=== PATIENT | female | born 1940 | race Caucasian/White ===

== ENCOUNTER 2017-02-06 12:50 | Day surgery (SDC) | payer MEDICARE, OTHER ==
--- NOTE | 2017-02-06 13:28 | PCM.PREANE ---
[id number] Transfusion History: Prior Transfusion Without Reaction - Physical Assessment Height: 1.6 m Weight: 68.765 kg - Allergies Allergies/Adverse Reactions: Allergies Allergy/AdvReac Type Severity Reaction Status Date / Time No Known Allergies Allergy Verified 02/17/14 12:03 PreAnesthesia Questionnaire HEENT History: Reports: Impaired vision, Other (see below) Other HEENT History: has contacts Cardiovascular History: Reports: Afib, Heart Failure, Hypertension Respiratory History: Reports: SOB Gastrointestinal History: Reports: Chronic constipation, GERD, Hiatal hernia Genitourinary History: Reports: Urinary incontinence 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: Musculoskeletal History: Reports: Back pain, chronic, Other (see below) Other Musculoskeletal History: knee pain, shoulder pain Psychiatric History: Reports: Anxiety, Depression Endocrine/Metabolic History: Reports: Hypothyroidism Hematologic History: Reports: Anemia, Blood transfusion(s), Other (see below) Other Hematologic History: thalessemia Oncologic (Cancer) History: Reports: Other (see below) Other Oncologic History: Melanoma - Past Surgical History HEENT Surgical History: Reports: Adenoidectomy, Tonsillectomy Cardiovascular Surgical History: Reports: Other (see below) Other Cardiovascular Surgeries/Procedures: cardiac shock treatment for A-Fib GI Surgical History: Reports: Colonoscopy, EGD, Other (see below) Other GI Surgeries/Procedures: double femoral hernia surgery Female Surgical History: Reports: Hysterectomy Endocrine Surgical History: Reports: None Musculoskeletal Surgical History: Reports: None Oncologic Surgical History: Reports: Other (see below) Other Oncologic Surgeries/Procedures: removal of melanoma - SUBSTANCE USE Smoking Status *Q: Former Smoker Tobacco Use Within Last Twelve Months: Cigarettes Second Hand Smoke Exposure: No Days Per Week of Alcohol Use: 0 Recreational Drug Use History: No - HOME MEDS Home Medications: Home Meds Candesartan [Atacand] 8 mg PO DAILY 02/17/14 [History] Cholecalciferol (Vitamin D3) [Vitamin D3] 1,000 units PO DAILY 02/17/14 [History ] Furosemide [Lasix] 40 mg PO DAILY 02/17/14 [History] Levothyroxine Sodium [Synthroid] 125 mcg PO DAILY 02/17/14 [History] Carvedilol [Coreg] 12.5 mg PO BID #60 tab 02/23/14 [Rx] Digoxin [Digox] 125 mcg PO DAILY 09/28/16 [History] Diltiazem [Cardizem CD] 240 mg PO DAILY 09/28/16 [History] LORazepam 0.5 mg PO TID PRN 09/28/16 [History] Menthol [Biofreeze] 1 applic TOP ASDIRECTED PRN 09/28/16 [History] buPROPion [Wellbutrin] 300 mg PO DAILY 09/28/16 [History] rOPINIRole [Requip] 0.5 mg PO BEDTIME 09/28/16 [History] Armodafinil [Nuvigil] 150 mg PO DAILY 02/06/17 [History] Folic Acid 1 mg PO DAILY 02/06/17 [History] Lactobac Cmb #3/Fos/Pantethine [Probiotic & Acidophilus] 1 cap PO DAILY [History] Pantoprazole Sodium [Protonix] 40 mg PO DAILY #90 cap 02/06/17 [Rx]
--- NOTE | 2017-02-06 13:37 | PCM.PREANE ---
Preanesthetic Assessment - Anesthesia/Transfusion/Family Hx Anesthesia History: Prior Anesthesia Reaction (excessive drowsiness) Type of Anesthesia Reaction: Excessive Somnolence Transfusion History: Prior Transfusion Without Reaction Intubation History: Unknown - Review of Systems General: No Symptoms Pulmonary: Shortness of Breath (gets short of breath with anemia ) Cardiovascular: No Symptoms Gastrointestinal: Nausea Neurological: No Symptoms Other: Reports: Easy Bleeding, Easy Bruising, Thyroid Problems - Physical Assessment NPO Status Date: 02/06/17 NPO Status Time: 06:00 Height: 1.6 m Weight: 68.765 kg ASA Class: 3 Mental Status: Alert & Oriented x3 Airway Class: Mallampati = 2 Dentition: Reports: [place](s) (4 permanent front ) Thyro-Mental Finger Breadths: 3 Mouth Opening Finger Breadths: 5 ROM/Head Extension: Full Lungs: Clear to auscultation, Normal respiratory effort Cardiovascular: Regular Rate, Regular Rhythm - Allergies Allergies/Adverse Reactions: Allergies Allergy/AdvReac Type Severity Reaction Status Date / Time No Known Allergies Allergy Verified 02/17/14 12:03 - Blood Blood Available: No - Anesthesia Plan Pre-Op Medication Ordered: Anxiolytic - Acknowledgements Anesthesia Type Planned: MAC (clarified with patient that propofol is not a true allergy ) Pt an Appropriate Candidate for the Planned Anesthesia: Yes Alternatives and Risks of Anesthesia Discussed w Pt/Guardian: Yes Pt/Guardian Understands and Agrees with Anesthesia Plan: Yes PreAnesthesia Questionnaire HEENT History: Reports: Impaired vision, Other (see below) Other HEENT History: has contacts Cardiovascular History: Reports: Afib, Heart Failure, Hypertension Respiratory History: Reports: SOB Gastrointestinal History: Reports: Chronic constipation, GERD, Hiatal hernia Genitourinary History: Reports: Urinary incontinence 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: Musculoskeletal History: Reports: Back pain, chronic, Other (see below) Other Musculoskeletal History: knee pain, shoulder pain Psychiatric History: Reports: Anxiety, Depression Endocrine/Metabolic History: Reports: Hypothyroidism Hematologic History: Reports: Anemia, Blood transfusion(s), Other (see below) Other Hematologic History: thalessemia Oncologic (Cancer) History: Reports: Other (see below) Other Oncologic History: Melanoma - Past Surgical History HEENT Surgical History: Reports: Adenoidectomy, Tonsillectomy Cardiovascular Surgical History: Reports: Other (see below) Other Cardiovascular Surgeries/Procedures: cardiac shock treatment for A-Fib GI Surgical History: Reports: Colonoscopy, EGD, Other (see below) Other GI Surgeries/Procedures: double femoral hernia surgery Female Surgical History: Reports: Hysterectomy Endocrine Surgical History: Reports: None Musculoskeletal Surgical History: Reports: None Oncologic Surgical History: Reports: Other (see below) Other Oncologic Surgeries/Procedures: removal of melanoma - SUBSTANCE USE Smoking Status *Q: Former Smoker Tobacco Use Within Last Twelve Months: Cigarettes Second Hand Smoke Exposure: No Days Per Week of Alcohol Use: 0 Recreational Drug Use History: No - HOME MEDS Home Medications: Home Meds Candesartan [Atacand] 8 mg PO DAILY 02/17/14 [History] Cholecalciferol (Vitamin D3) [Vitamin D3] 1,000 units PO DAILY 02/17/14 [History ] Furosemide [Lasix] 40 mg PO DAILY 02/17/14 [History] Levothyroxine Sodium [Synthroid] 125 mcg PO DAILY 02/17/14 [History] Rivaroxaban [Xarelto] 15 mg PO DAILY 02/17/14 [History] Carvedilol [Coreg] 12.5 mg PO BID #60 tab 02/23/14 [Rx] Digoxin [Digox] 125 mcg PO DAILY 09/28/16 [History] Diltiazem [Cardizem CD] 240 mg PO DAILY 09/28/16 [History] LORazepam 0.5 mg PO TID PRN 09/28/16 [History] Menthol [Biofreeze] 1 applic TOP ASDIRECTED PRN 09/28/16 [History] buPROPion [Wellbutrin] 300 mg PO DAILY 09/28/16 [History] rOPINIRole [Requip] 0.5 mg PO BEDTIME 09/28/16 [History] Armodafinil [Nuvigil] 150 mg PO DAILY 02/06/17 [History] Folic Acid 1 mg PO DAILY 02/06/17 [History] Lactobac Cmb #3/Fos/Pantethine [Probiotic & Acidophilus] 1 cap PO DAILY [History]
[2017-02-06] MEDS ORDERED: Lidocaine 1% 50 ML MDV ONE (13:51)
[2017-02-06] MEDS ORDERED: Heparin Sodium 5,000 Units/ML Vial ONE (13:51)
[2017-02-06] MEDS ORDERED: Sodium Chloride 0.9% 10 ML Syringe FLUSH PRN (14:07)
[2017-02-06] MEDS ORDERED: Lidocaine 1%/Sod Bicarbonate in NS 8.4% 1 ML Syringe IV PRN (14:07)
[2017-02-06] MEDS ORDERED: Lactated Ringers 1,000 ML IV SCH (14:15)
[2017-02-06] MEDS ORDERED: Midazolam 1 MG/ML 2 ML SDV ONE (14:17)
[2017-02-06] MEDS ORDERED: Propofol 200 MG/20 ML SDV ONE ×2 (14:17→15:41)
[2017-02-06] MEDS ORDERED: Ketamine 500 mg/10 ML MDV ONE (14:18)
[2017-02-06] MEDS ORDERED: Lidocaine 1% 4 ML ONE (14:19)
[2017-02-06] MEDS ORDERED: Phenylephrine 1% 10 MG/ML SDV ONE (15:43)
--- NOTE | 2017-02-06 16:05 | PCM.OPNOTE ---
- General Post-Op/Procedure Note Date of Surgery/Procedure: 02/06/17 Operative Procedure(s): Bone marrow biopsy and aspiration, diagnostic EGD with cold forceps biopsy, attempted colonoscopy and flexible sigmoidoscopy Pre Op Diagnosis: Anemia of uncertain etiology, family history of colon cancer, heartburn and reflux, hematochezia x1 Post-Op Diagnosis: Gastritis, gastric ulcers, hiatal hernia, Neftali's ulcer, diverticulosis Anesthesia Technique: MAC Primary Surgeon: Lalita Chahal Anesthesia Provider: Mj August Risk Control Director: Marla Arboleda Pathology: 1. Small bowel biopsy 2. Antral biopsy 3. Distal esophageal biopsy 4. Bone marrow core biopsy 5. Bone marrow aspirate Fluid Replacement, Intraop: 900 (mL crystalloid ) EBL in mLs: 15 Complications: None Condition: Good Free Text/Narrative:: Indication for Procedure: The patient is a 76-year-old woman who was referred to me by Dr. Ely Vivar for bone marrow biopsy for further work-up of possible MDS or possibly leukemia. She also has a history of thalassemia and intermittent severe anemia. An EGD and colonoscopy for work-up of her anemia was also requested. Last EGD and colonoscopy were in with Drs. Eaton and Eze. I discussed with the patient bone marrow biopsy as well as EGD and colonoscopy and associated risks of the procedures. The patient found these risks acceptable and agreed to proceed. She last took her Xarelto on 02/04/17 at 0300. Description of Procedure: The patient was taken to the operating room and placed in the left lateral decubitus position. After induction of adequate sedation, the right posterior iliac crest was identified anatomically and the area was prepped with chlorhexidine. 10 mL of local anesthetic was injected into the target insertion site into the posterior iliac crest and associated periosteum. A small stab incision was made using a scalpel after a sterile drape was applied. A P2i [employer] bone marrow biopsy kit was utilized. The bone marrow core biopsy needle was introduced into the posterior iliac crest and the inner cannula removed. 10 mL of bone marrow was rapidly aspirated without difficulty into a heparinated syringe and immediately passed off to Pathology for slide preparation. The bone marrow biopsy needle was removed and pressure was held. The inner cannula was replaced and the biopsy trocar was once again introduced through the incision site and placed in a slightly different position on the posterior iliac crest for obtaining a core bone marrow sample. A core sample was obtained and immediately passed off to Pathology for preparation of slides. Special instructions were sent in writing and verbally conveyed to pathology regarding the additional studies requested by Dr. Vivar to be performed on the specimen. Pressure was held at the incision site for a total of 15 minutes. Gauze and a band-aid was applied. An additional peripheral blood specimen during was drawn during today's visit for pathology for performance of the peripheral smear. Attention was then turned to the endoscopy, and a bite block was placed. A standard Olympus gastroscope was inserted into the oropharynx and guided down the esophagus without difficulty. The gastroesophageal junction was appreciated at 34 cm from the teeth. There was no evidence of stricture or esophageal ulcerations. The scope was advanced into the stomach, and there was gastritis with small gastric ulcers of the antrum that were not actively bleeding. The scope was passed into the proximal jejunum and the duodenum which were unremarkable. There were no petechiae or ulcerations. The proximal jejunum was grossly normal in appearance. Multiple cold forceps biopsies were obtained of the proximal jejunum and duodenum. The scope was withdrawn into the antrum, and additional cold forceps biopsies were obtained. The remainder of the gastric body was examined, and there was a non-bleeding Neftali's ulcer associated with a medium sized hiatal hernia, about 5 cm in length. The scope was retroflexed. The scope was straightened and withdrawn to the GE junction. Additional cold forceps biopsies were obtained of the distal esophagus. The scope was withdrawn through the remainder of the esophagus and no further abnormalities were noted. The posterior oropharynx was grossly normal in appearance. The scope was fully withdrawn and attention was then turned to the colonoscopy. A digital rectal exam was performed which was unremarkable. A pediatric Olympus colonoscope was inserted into the rectum and was advanced to about 80 cm , but was not able to be advanced further due to looping of the scope. Counter pressure was utilized as well as positional change to supine with no avail. The patient had a complete colonoscopy in [address] Eaton, performed due to severe anemia, which was unremarkable. The scope was then slowly withdrawn through the colon from 80 cm and distally. The quality of the prep was good. There was no evidence of angiodysplasias. Diverticulosis was noted in the sigmoid colon. No mass lesions were noted. The scope was withdrawn into the rectum and retroflexed. There was no significant prominence of the patient's internal hemorrhoids. The scope was straightened, the colon was desufflated, and the scope was withdrawn. The patient was awakened from sedation and transferred to the recovery room in stable condition having tolerated the procedure well. Postoperative Plan: The patient will be contacted by Dr. Vivar's office regarding their bone marrow biopsy results. The patient will follow up in approximately 7-10 days to discuss pathology and endoscopy findings. With the patient's history of thalassemia and now concern for possible bone marrow related disorder, her anemia presentation is certainly complicated. She also has gastric ulcers and with the presence of a hiatal hernia and a Neftali's ulcer, iron deficiency anemia certainly may be associated with this. The patient is to start Protonix 40mg daily. I have asked the patient to follow a GERD\gastritis diet. The patient is to call with any worsening of symptoms or questions prior to the appointment. The patient is to call my office with any questions or concerns regarding the bone marrow biopsy site or concerns regarding the procedure.
--- NOTE | 2017-02-06 16:07 | PCM48HPAN ---
Post Anesthesia Note - EVALUATION WITHIN 48HRS OF ANESTHETIC Vital Signs in Normal Range: Yes Patient Participated in Evaluation: Yes Respiratory Function Stable: Yes Airway Patent: Yes Cardiovascular Function Stable: Yes Hydration Status Stable: Yes Pain Control Satisfactory: Yes Nausea and Vomiting Control Satisfactory: Yes Mental Status Recovered: Yes
[2017-02-06 16:55] VITALS: BP 121/62
== END 2017-02-06 16:50 | disposition home or self-care (01) ==
LOC: JD.SDS 12:50
PROVIDERS: ATTEND Surgery
DX: K57.30 Diverticulosis of large intestine without perforation or abscess without bleeding (principal); D64.9 Anemia, unspecified; K62.5 Hemorrhage of anus and rectum; Z80.0 Family history of malignant neoplasm of digestive organs; I48.91 Unspecified atrial fibrillation; Z79.01 Long term (current) use of anticoagulants; K59.00 Constipation, unspecified; K21.9 Gastro-esophageal reflux disease without esophagitis; F10.239 Alcohol dependence with withdrawal, unspecified; F10.10 Alcohol abuse, uncomplicated; Z87.891 Personal history of nicotine dependence; E03.9 Hypothyroidism, unspecified; F41.9 Anxiety disorder, unspecified; F32.9 Major depressive disorder, single episode, unspecified; E87.6 Hypokalemia; Z90.710 Acquired absence of both cervix and uterus; Z98.890 Other specified postprocedural states; Z79.899 Other long term (current) drug therapy; Z88.8 Allergy status to other drugs, medicaments and biological substances
CPT/HCPCS: 36415; 38220; 38221; 43239; 45378; 85025; 85097; 88305; 88311; 88313; J1644; J2250; J2370; J7120; 01112; 88271; 88274; 88275; J2704

== ENCOUNTER 2017-03-18 13:41 | Emergency (ER) | payer MEDICARE, OTHER ==
[2017-03-18] MEDS ORDERED: Sodium Chloride 0.9% 10 ML Syringe FLUSH PRN (14:18)
--- NOTE | 2017-03-18 14:23 | EDM.PDOC ---
ED HPI GENERAL MEDICAL PROBLEM - General Chief Complaint: General Stated Complaint: WEAKNESS,DIZZINESS Time Seen by Provider: 03/18/17 14:03 Source of Information: Reports: Patient History Limitations: Reports: No Limitations - History of Present Illness INITIAL COMMENTS - FREE TEXT/NARRATIVE: 76-year-old female presents for evaluation and treatment of weakness, shortness of breath, dizziness and decreased appetite. Patient reports that the symptoms have been going on since Saturday. Patient has chronic anemia and states this is how she feels when her hemoglobin is low. She currently receives one unit of blood every other week. Her last unit of blood was last Saturday. Reports that her hemoglobin was 8.2 pretransfusion. Her current symptoms include weakness, and a burning sensation to the bilateral knees, shortness of breath, dizziness and decreased appetite. She denies any chest pain, syncope, fevers, abdominal pain, diarrhea, melena or hematochezia. Patient's is present and states that he checks daily and her blood pressure was running 93-105 systolic. Patient reports she is having some postnasal drip and increased phlegm. Chest reports a chronic cough, no change. Reviewed the patient's records show that she had an EGD and colonoscopy on February 05, 2017. She also had a bone marrow biopsy. Diagnosis he is from the EGD and colonoscopy include gastritis, gastric ulcer, hiatal hernia, Neftali's ulcer and diverticulosis. Patient reports she has "bone marrow cancer". - Related Data Allergies Allergy/AdvReac Type Severity Reaction Status Date / Time propofol Allergy Drowsiness Verified 03/18/17 13:53 Home Meds: Home Meds Candesartan [Atacand] 8 mg PO DAILY 02/17/14 [History] Cholecalciferol (Vitamin D3) [Vitamin D3] 1,000 units PO DAILY 02/17/14 [History ] Furosemide [Lasix] 40 mg PO DAILY 02/17/14 [History] Levothyroxine Sodium [Synthroid] 125 mcg PO DAILY 02/17/14 [History] Carvedilol [Coreg] 12.5 mg PO BID #60 tab 02/23/14 [Rx] Digoxin [Digox] 125 mcg PO DAILY 09/28/16 [History] Diltiazem [Cardizem CD] 240 mg PO DAILY 09/28/16 [History] LORazepam 0.5 mg PO TID PRN 09/28/16 [History] Menthol [Biofreeze] 1 applic TOP ASDIRECTED PRN 09/28/16 [History] buPROPion [Wellbutrin] 300 mg PO DAILY 09/28/16 [History] rOPINIRole [Requip] 1 mg PO BEDTIME 09/28/16 [History] Armodafinil [Nuvigil] 150 mg PO DAILY 02/06/17 [History] Folic Acid 1 mg PO DAILY 02/06/17 [History] Lactobac Cmb #3/Fos/Pantethine [Probiotic & Acidophilus] 1 cap PO DAILY [History] Pantoprazole Sodium [Protonix] 40 mg PO DAILY #90 cap 02/06/17 [Rx] Guaifenesin/Pseudoephedrne HCl [Mucinex D ER Tablet] 1 each PO BID PRN 02/27/17 [History] Rivaroxaban [Xarelto] 15 mg PO DAILY 02/27/17 [History] Past Medical History HEENT History: Reports: Impaired Vision, Other (See Below) Other HEENT History: has contacts Cardiovascular History: Reports: Afib, Heart Failure, Hypertension Respiratory History: Reports: SOB Gastrointestinal History: Reports: Chronic Constipation, GERD, Hiatal Hernia Genitourinary History: Reports: Urinary Incontinence [employer] History: Reports: Musculoskeletal History: Reports: Back Pain, Chronic, Other (See Below) Other Musculoskeletal History: knee pain, shoulder pain Psychiatric History: Reports: Anxiety, Depression Endocrine/Metabolic History: Reports: Hypothyroidism Hematologic History: Reports: Anemia, Blood Transfusion(s) Other Hematologic History: thalessemia Oncologic (Cancer) History: Reports: Other (See Below) Other Oncologic History: PATIENT STATES SHE HAS A BONE MARROW CANCER - Past Surgical History Cardiovascular Surgical History: Reports: Other (See Below) GI Surgical History: Reports: Colonoscopy, EGD, Other (See Below) Endocrine Surgical History: Reports: None Dermatological Surgical History: Reports: Skin Biopsy Social & Family History - Family History Family Medical History: Noncontributory - Tobacco Use Smoking Status *Q: Former Smoker Years of Tobacco use: 30 Used Tobacco, but Quit: Yes Month Tobacco Last Used: 1 Second Hand Smoke Exposure: No - Caffeine Use Caffeine Use: Reports: None - Alcohol Use Days Per Week of Alcohol Use: 0 - Recreational Drug Use Recreational Drug Use: No ED ROS GENERAL - Review of Systems Review Of Systems: See Below Constitutional: Reports: Weakness, Decreased Appetite. Denies: Fever HEENT: Reports: Other (very minimal bleeding from the gums; reports a drop after brushing her teeth). Denies: Nosebleed Respiratory: Reports: Shortness of Breath, Cough (chronic) Cardiovascular: Denies: Chest Pain GI/Abdominal: Denies: Abdominal Pain, Diarrhea, Hematochezia, Melena, Nausea, Vomiting Musculoskeletal: Reports: Joint Pain (bilateral knee pain/burning) Neurological: Denies: Headache, Syncope ED EXAM, GENERAL - Physical Exam Exam: See Below Exam Limited By: No Limitations General Appearance: Alert, WD/WN, No Apparent Distress Ears: Normal External Exam Nose: Normal Inspection Throat/Mouth: Normal Inspection, Normal Lips, Normal Voice, No Airway Compromise Respiratory/Chest: No Respiratory Distress, Lungs Clear, Normal Breath Sounds Cardiovascular: Normal Peripheral Pulses, Regular Rate, Rhythm, No Murmur GI/Abdominal: Soft, Non-Tender Neurological: Alert, Oriented, Normal Cognition Psychiatric: Normal Affect, Normal Mood Skin Exam: Warm, Dry, Normal Color EKG INTERPRETATION EKG Date: 03/18/17 Time: 14:30 Rhythm: a-fib Rate (beats/min): 84 (48-100 bpm) Dale: LAD-left axis deviation P-wave: absent QRS: normal ST-T: normal QT: normal EKG Interpretation Comments: a.fib with a rate of 48-100 bpm. 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 LAD - 26 degrees. Reviewed by myself and Dr. Boland. Course - Vital Signs Last Recorded V/S: Last Vital Signs Temp 36.7 C 03/18/17 19:55 Pulse 92 03/18/17 19:55 Resp 19 03/18/17 19:55 BP 114/58 L 03/18/17 19:55 Pulse Ox 98 03/18/17 13:48 - Orders/Labs/Meds Labs: Laboratory Tests 03/18/17 03/18/17 03/18/17 Range/Units 14:10 14:10 14:10 WBC 1.96 L* (3.98-10.04) K/mm3 RBC 2.93 L (3.98-5.22) M/mm3 Hgb 8.1 L (11.2-15.7) gm/L Hct 24.5 L (34.1-44.9) % MCV 83.6 (79.4-94.8) fl MCH 27.6 (25.6-32.2) pg MCHC 33.1 (32.2-35.5) g/dl RDW Std Deviation 46.1 (36.4-46.3) fL Plt Count 134 L (182-369) K/mm3 MPV TNP Neutrophils % (Manual) 60 (40-60) % Band Neutrophils % 0 (0-10) % Lymphocytes % (Manual) 29 (20-40) % Atypical Lymphs % 0 % Monocytes % (Manual) 3 (2-10) % Eosinophils % (Manual) 7 H (0.7-5.8) % Basophils % (Manual) 0 L (0.1-1.2) Metamyelocytes % 1 Platelet Estimate Adequate Plt Morphology Comment Normal Poikilocytosis 2+ moderate Target Cells 1+ slight Ovalocytes 1+ slight Stomatocytes 1+ slight Jennifer Cells 1+ slight Schistocytes 1+ slight RBC Morph Comment Not Reportable PT (8.0-13.0) SECONDS INR APTT (22-36) SECONDS Sodium 140 (136-145) mEq/L Potassium 4.0 (3.5-5.1) mEq/L Chloride 101 (98-107) mEq/L Carbon Dioxide 29 (21-32) mEq/L Anion Gap 14.0 (5-15) BUN 44 H (7-18) mg/dL Creatinine 1.5 H (0.55-1.02) mg/dL Est Cr Clr Drug Dosing TNP Estimated GFR (MDRD) 34 (>60) mL/min BUN/Creatinine Ratio 29.3 H (14-18) Glucose 145 H (83-115) mg/dL Calcium 9.1 (8.5-10.1) mg/dL Magnesium 2.1 (1.8-2.4) mg/dl Total Bilirubin 0.4 (0.2-1.0) mg/dL AST 12 L (15-37) U/L ALT 30 (14-59) U/L Alkaline Phosphatase 91 (46-116) U/L Troponin I < 0.017 (0.00-0.056) ng/mL B-Natriuretic Peptide 269 H (0-100) pg/mL Total Protein 6.8 (6.4-8.2) g/dl Albumin 3.9 (3.4-5.0) g/dl Globulin 2.9 gm/dL Albumin/Globulin Ratio 1.3 (1-2) Slides for Path Review Yes Blood Type Gel Antibody Screen Crossmatch 03/18/17 03/18/17 Range/Units 14:10 14:10 WBC (3.98-10.04) K/mm3 RBC (3.98-5.22) M/mm3 Hgb (11.2-15.7) gm/L Hct (34.1-44.9) % MCV (79.4-94.8) fl MCH (25.6-32.2) pg MCHC (32.2-35.5) g/dl RDW Std Deviation (36.4-46.3) fL Plt Count (182-369) K/mm3 MPV Neutrophils % (Manual) (40-60) % Band Neutrophils % (0-10) % Lymphocytes % (Manual) (20-40) % Atypical Lymphs % % Monocytes % (Manual) (2-10) % Eosinophils % (Manual) (0.7-5.8) % Basophils % (Manual) (0.1-1.2) Metamyelocytes % Platelet Estimate Plt Morphology Comment Poikilocytosis Target Cells Ovalocytes Stomatocytes [place] Cells Schistocytes RBC Morph Comment PT 14.0 H (8.0-13.0) SECONDS INR 1.27 APTT 33 (22-36) SECONDS Sodium (136-145) mEq/L Potassium (3.5-5.1) mEq/L Chloride (98-107) mEq/L Carbon Dioxide (21-32) mEq/L Anion Gap (5-15) BUN (7-18) mg/dL Creatinine (0.55-1.02) mg/dL Est Cr Clr Drug Dosing Estimated GFR (MDRD) (>60) mL/min BUN/Creatinine Ratio (14-18) Glucose (83-115) mg/dL Calcium (8.5-10.1) mg/dL Magnesium (1.8-2.4) mg/dl Total Bilirubin (0.2-1.0) mg/dL AST (15-37) U/L ALT (14-59) U/L Alkaline Phosphatase (46-116) U/L Troponin I (0.00-0.056) ng/mL B-Natriuretic Peptide (0-100) pg/mL Total Protein (6.4-8.2) g/dl Albumin (3.4-5.0) g/dl Globulin gm/dL Albumin/Globulin Ratio (1-2) Slides for Path Review Blood Type A POSITIVE Gel Antibody Screen Negative Crossmatch See Detail Meds: Medications Discontinued Medications Generic Name Dose Route Start Last Admin Trade Name Freq PRN Reason Stop Dose Admin Sodium Chloride 250 mls @ 75 mls/hr 03/18/17 19:29 03/18/17 19:37 Normal Saline IV 03/18/17 22:48 75 mls/hr NOW STA Administration Sodium Chloride 10 ml 03/18/17 14:18 03/18/17 14:27 Saline Flush FLUSH 10 ml ASDIRECTED PRN Administration Keep Vein Open - Radiology Interpretation Free Text/Narrative:: xray of the chest, [address] Castellanos: 1. Incidental findings as described. Nothing acute is appreciated. - Re-Assessments/Exams Free Text/Narrative Re-Assessment/Exam: 03/18/17 15:25 Labs returned. White blood cell count is 1.96, hgb is 8.1 and platelets are 134. (Hgb Saturday pre-transfusion was 8.2) Sodium 140, potassium 4.7 chloride 101. creatinine is 1.5. BUN 44. Glucose 145. BNP 269. trop is <0.017. Magnesium 2.1. Discussed the case with Dr. Boland. Recommends giving 2 units of blood. Discussed labs, ekg and chest xray results with the patient. Will give 2 units of blood. Due to her hypotension will hold giving lasix in between units. Will plan to discharge after infusion. 03/18/17 22:00 Will discharge home. Discharge instructions as documented. Departure - Departure Time of Disposition: 22:09 Disposition: Home, Self-Care 01 Condition: good Clinical Impression: Anemia - Discharge Information Instructions: Iron Deficiency Anemia, Adult, [id number] Referrals: Fredy Loo MD [Primary Care Provider] - Forms: ED Department Discharge Additional Instructions: Continue with your current plan of care. Rest. Follow up with your primary care provider or your oncologist this week for a recheck. Please return to the ER if your symptoms change or worsen.
--- NOTE | 2017-03-18 16:06 | CR ---
Chest: Portable view of the chest was obtained. Comparison: Previous chest x-ray of 09/28/16. Heart is enlarged. Mild scarring is seen behind the left heart. Lungs otherwise are clear. Mild scoliosis is noted within the spine. Bony structures are otherwise grossly intact. 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 Impression: 1. Incidental findings as described above. Nothing acute is appreciated. Diagnostic code #2
[2017-03-18] MEDS ORDERED: Sodium Chloride 0.9% 250 ML IV STA (19:29)
[2017-03-18 19:56] VITALS: BP 114/58
== END 2017-03-18 23:10 | disposition home or self-care (01) ==
LOC: JD.ED 13:41
DX: D64.9 Anemia, unspecified (principal); R42 Dizziness and giddiness; Z79.899 Other long term (current) drug therapy; I48.91 Unspecified atrial fibrillation; I10 Essential (primary) hypertension; E03.9 Hypothyroidism, unspecified; R05 Cough; F41.9 Anxiety disorder, unspecified; F32.9 Major depressive disorder, single episode, unspecified; I50.9 Heart failure, unspecified; K44.9 Diaphragmatic hernia without obstruction or gangrene; K21.9 Gastro-esophageal reflux disease without esophagitis; D56.9 Thalassemia, unspecified; C96.9 Malignant neoplasm of lymphoid, hematopoietic and related tissue, unspecified
CPT/HCPCS: 36415; 36430; 71010; 80053; 83735; 83880; 84484; 85025; 85610; 85730; 86850; 86900; 86901; 86922; 93005; 96360; 96361; 99284; J7050; P9016